=== PATIENT | female | born 1960 | race Caucasian/White ===

== ENCOUNTER 2017-06-23 18:11 | Observation (INO) | payer OTHER ==
[2017-06-23] VITALS (8 sets, daily range): BP systolic 142–195; BP diastolic 73–92; PULSE 75–86; RESP 18; TEMP 98.4; O2SAT 97–98
[~2017-06-23] VITALS: Ht 152.4 cm; Wt 89.5 kg
[2017-06-23] MEDS ORDERED: LISI20TA PO (18:24)
[2017-06-23] MEDS ORDERED: BACT400T PO (18:24)
[2017-06-23] MEDS ORDERED: SODIUM CHLORID 0.9% 500 ML INJ 500 ML IV ONE (18:45)
[2017-06-23] MEDS ORDERED: SODIUM CHLORIDE 0.9% FLUSH 10 ML FLUSH IVF PRN (18:45)
[2017-06-23] MEDS: NITROGLYCERIN 0.4 MG SL 25 TABS/BTL SL SCH ×3 (19:05→19:14)
--- NOTE | 2017-06-23 19:05 | PD ---
HPI Chief Complaint: Chest Pain Time Seen by Provider: 18:32 Travel History International Travel<30 days: No Contact w/Intl Traveler<30days: No Traveled to known affect area: No History of Present Illness HPI Patient is a 57-year-old female with history of hypertension, presents to emergency room with complaints of chest pain. Patient reports that around 5:30 PM tonight, she was standing in her kitchen and began to have chest pain. She reports that chest pain was substernal nature, reports it radiates to her back. Patient reports that pain feels like a "gripping pain" to her chest with associated shortness of breath. Patient denies any diaphoresis or nausea or vomiting with her symptoms. Patient reports that symptoms were continuous until she came to the emergency room, reports that it slightly resolved but then came back again. Patient denies history of coronary artery disease, denies history of hypertension or hyperlipidemia. Patient with no recent travels or trips. 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, denies history of ACS PFSH Past Medical History Genitourinary: Yes (UTI) Hypertension: Yes Influenza Vaccination: No ?: Not Past Surgical History Surgical History: No Previous Surgery Social History Alcohol Use: Yes (OCCAS) Tobacco Use: No Substance Use: No Allergies-Medications (Allergen,Severity, Reaction): Coded Allergies: No Known Allergies (Unverified , 06/23/17) Reported Meds & Prescriptions Reported Meds & Active Scripts Active Reported Lisinopril-Hctz 20-12.5 Mg Tab 1 Tab PO DAILY Bactrim (Sulfamethoxazole-Trimethoprim) 400-80 Mg Tab 1 Tab PO BID Review of Systems General / Constitutional: No: Fever, Chills Eyes: No: Visual changes HENT: No: Headaches Cardiovascular: Positive: Chest Pain or Discomfort, No: Palpitations, Irregular Rhythm, Tachycardia, Diaphoresis Respiratory: Positive: Shortness of Breath Gastrointestinal: No: Nausea, Vomiting, Diarrhea, Abdominal Pain Genitourinary: No: Dysuria Musculoskeletal: No: Pain Skin: No Rash Neurologic: No: Weakness Psychiatric: No: Depression Endocrine: No: Polydipsia Hematologic/Lymphatic: No: Easy Bruising Physical Exam Narrative GENERAL: mild distress SKIN: Focused skin assessment warm/dry. HEAD: Atraumatic. Normocephalic. EYES: Pupils equal and round. No scleral icterus. No injection or drainage. ENT: No nasal bleeding or discharge. Mucous membranes pink and moist. NECK: Trachea midline. No JVD. CARDIOVASCULAR: Regular rate and rhythm. No murmur appreciated. RESPIRATORY: No accessory muscle use. Clear to auscultation. Breath sounds equal bilaterally. GASTROINTESTINAL: Abdomen soft, non-tender, nondistended. Hepatic and splenic margins not palpable. MUSCULOSKELETAL: No obvious deformities. No clubbing. No cyanosis. No edema. NEUROLOGICAL: Awake and alert. No obvious cranial nerve deficits. Motor grossly within normal limits. Normal speech. PSYCHIATRIC: Appropriate mood and affect; insight and judgment normal. Data Data Last Documented VS Vital Signs Date Time Temp Pulse Resp B/P (MAP) Pulse Ox O2 Delivery O2 Flow Rate FiO2 06/23/17 22:02 75 18 150/73 (98) 98 Room Air 06/23/17 18:21 98.4 Orders Orders B-Type Natriuretic Peptide (06/23/17 18:32) Ckmb (Isoenzyme) Profile (06/23/17 18:32) Complete Blood Count With Diff (06/23/17 18:32) Comprehensive Metabolic Panel (06/23/17 18:32) D-Dimer (06/23/17 18:32) Magnesium (Mg) (06/23/17 18:32) Prothrombin Time / Inr (Pt) (06/23/17 18:32) Act Partial Throm Time (Ptt) (06/23/17 18:32) Troponin I (06/23/17 18:32) Lipase (06/23/17 18:32) Chest, Single Ap (06/23/17 18:32) Ecg Monitoring (06/23/17 18:32) Bilateral Bp Monitoring (06/23/17 18:32) Iv Access Insert/Monitor (06/23/17 18:32) Oximetry (06/23/17 18:32) Sodium Chloride 0.9% Flush (Ns Flush) (06/23/17 18:45) Sodium Chlorid 0.9% 500 Ml Inj (Ns 500 M (06/23/17 18:45) Cta Thor Abd Aorta W Iv C W3d (06/23/17 18:51) Nitroglycerin Sl (Nitrostat Sl) (06/23/17 19:00) Electrocardiogram (06/23/17 18:20) Iohexol 350 Inj (Omnipaque 350 Inj) (06/23/17 21:48) Aspirin (Aspirin) (06/23/17 22:45) Labs Laboratory Tests Test 06/23/17 18:30 06/23/17 20:05 B-Type Natriuretic Peptide 14 PG/ML White Blood Count 6.2 TH/MM3 Red Blood Count 4.41 MIL/MM3 Hemoglobin 13.6 GM/DL Hematocrit 39.7 % Mean Corpuscular Volume 90.1 FL Mean Corpuscular Hemoglobin 30.9 PG Mean Corpuscular Hemoglobin Concent 34.3 % Red Cell Distribution Width 12.7 % Platelet Count 268 TH/MM3 Mean Platelet Volume 7.2 FL Neutrophils (%) (Auto) 76.4 % Lymphocytes (%) (Auto) 18.6 % Monocytes (%) (Auto) 3.3 % Eosinophils (%) (Auto) 1.3 % Basophils (%) (Auto) 0.4 % Neutrophils # (Auto) 4.7 TH/MM3 Lymphocytes # (Auto) 1.2 TH/MM3 Monocytes # (Auto) 0.2 TH/MM3 Eosinophils # (Auto) 0.1 TH/MM3 Basophils # (Auto) 0.0 TH/MM3 CBC Comment DIFF FINAL Differential Comment Prothrombin Time 10.7 SEC Prothromb Time International Ratio 1.0 RATIO Activated Partial Thromboplast Time 28.7 SEC D-Dimer Quantitative (PE/DVT) 0.48 MG/L FEU Blood Urea Nitrogen 36 MG/DL Creatinine 0.90 MG/DL Random Glucose 94 MG/DL Total Protein 7.9 GM/DL Albumin 4.0 GM/DL Calcium Level 8.7 MG/DL Magnesium Level 2.1 MG/DL Alkaline Phosphatase 101 U/L Aspartate Amino Transf (AST/SGOT) 19 U/L Alanine Aminotransferase (ALT/SGPT) 38 U/L Total Bilirubin 0.6 MG/DL Sodium Level 133 MEQ/L Potassium Level 3.6 MEQ/L Chloride Level 99 MEQ/L Carbon Dioxide Level 23.0 MEQ/L Anion Gap 11 MEQ/L Estimat Glomerular Filtration Rate 65 ML/MIN Total Creatine Kinase 94 U/L Troponin I LESS THAN 0.02 NG/ML Lipase 92 U/L MDM Medical Decision Making Medical Screen Exam Complete: Yes Emergency Medical Condition: Yes Medical Record Reviewed: Yes Interpretation(s) EKG at 1820: Normal sinus rhythm at 78BPM, qt/qtc: 362/396 incomplete RBBB; no previous ekg to compare Vital Signs Date Time Temp Pulse Resp B/P (MAP) Pulse Ox O2 Delivery O2 Flow Rate FiO2 06/23/17 18:41 97 Room Air 06/23/17 18:35 86 97 Room Air 06/23/17 18:21 98.4 86 18 195/92 (126) 97 Differential Diagnosis Aortic dissection, ACS, arrhythmia, electrolyte abnormality, PE Narrative Course 57-year-old female with history of hypertension, presents to emergency with complaints of chest pain. During the course of the patients emergency department visit, the patients history, examination, and differential diagnosis were reviewed with the patient. The patient was placed on a surveillance monitor with oximetry and frequent blood pressure monitoring. The patient had [-] IV access obtained and blood work sent for analysis. The patient was initially provided IVF as well as SL nitro for chest pain relief. Patient received 1 dose of SL nitro - reports relief of chest pain at this time. The patients laboratory studies were reviewed and remarkable for: Laboratory Tests Test 06/23/17 18:30 06/23/17 20:05 B-Type Natriuretic Peptide 14 PG/ML (0-100) White Blood Count 6.2 TH/MM3 (4.0-11.0) Red Blood Count 4.41 MIL/MM3 (4.00-5.30) Hemoglobin 13.6 GM/DL (11.6-15.3) Hematocrit 39.7 % (35.0-46.0) Mean Corpuscular Volume 90.1 FL (80.0-100.0) Mean Corpuscular Hemoglobin 30.9 PG (27.0-34.0) Mean Corpuscular Hemoglobin Concent 34.3 % (32.0-36.0) Red Cell Distribution Width 12.7 % (11.6-17.2) Platelet Count 268 TH/MM3 (150-450) Mean Platelet Volume 7.2 FL (7.0-11.0) Neutrophils (%) (Auto) 76.4 % (16.0-70.0) Lymphocytes (%) (Auto) 18.6 % (9.0-44.0) Monocytes (%) (Auto) 3.3 % (0.0-8.0) Eosinophils (%) (Auto) 1.3 % (0.0-4.0) Basophils (%) (Auto) 0.4 % (0.0-2.0) Neutrophils # (Auto) 4.7 TH/MM3 (1.8-7.7) Lymphocytes # (Auto) 1.2 TH/MM3 (1.0-4.8) Monocytes # (Auto) 0.2 TH/MM3 (0-0.9) Eosinophils # (Auto) 0.1 TH/MM3 (0-0.4) Basophils # (Auto) 0.0 TH/MM3 (0-0.2) CBC Comment DIFF FINAL Differential Comment Prothrombin Time 10.7 SEC (9.8-11.6) Prothromb Time International Ratio 1.0 RATIO Activated Partial Thromboplast Time 28.7 SEC (24.3-30.1) D-Dimer Quantitative (PE/DVT) 0.48 MG/L FEU (0.00-0.50) Blood Urea Nitrogen 36 MG/DL (7-18) Creatinine 0.90 MG/DL (0.50-1.00) Random Glucose 94 MG/DL (74-106) Total Protein 7.9 GM/DL (6.4-8.2) Albumin 4.0 GM/DL (3.4-5.0) Calcium Level 8.7 MG/DL (8.5-10.1) Magnesium Level 2.1 MG/DL (1.5-2.5) Alkaline Phosphatase 101 U/L (45-117) Aspartate Amino Transf (AST/SGOT) 19 U/L (15-37) Alanine Aminotransferase (ALT/SGPT) 38 U/L (10-53) Total Bilirubin 0.6 MG/DL (0.2-1.0) Sodium Level 133 MEQ/L (136-145) Potassium Level 3.6 MEQ/L (3.5-5.1) Chloride Level 99 MEQ/L (98-107) Carbon Dioxide Level 23.0 MEQ/L (21.0-32.0) Anion Gap 11 MEQ/L (5-15) Estimat Glomerular Filtration Rate 65 ML/MIN (>89) Total Creatine Kinase 94 U/L (26-192) Troponin I LESS THAN 0.02 NG/ML Lipase 92 U/L (73-393) Radiology studies were reviewed and remarkable for: Last Impressions Chest X-Ray 06/23/17 [id number] Signed Impressions: Service Date/Time: Friday, June 23, 2017 19:19 - CONCLUSION: No acute disease. Buddy Godfrey MD CTA of chest: Scattered atherosclerotic calcifications throughout the arterial system including the coronary arteries. A significant stenosis or dissection of the aorta is not seen. CP free after 1 sl nitro. Diagnosis Primary Impression: Chest pain Elena Cueva DO Jun 23, 2017 19:05
[2017-06-23 19:22] LABS: BASOPHIL % 0.4 % (0.0-2.0); HEMO FLAGS DIFF FINAL
[2017-06-23 20:17] LABS: HEMATOCRIT 39.7 % (35.0-46.0); RED BLOOD COUNT 4.41 MIL/MM3 (4.00-5.30)
[2017-06-23 20:18] LABS: MEAN CELL VOLUME 90.1 FL (80.0-100.0); MEAN CORPUSCULAR HEMOGLOBIN 30.9 PG (27.0-34.0)
[2017-06-23 20:19] LABS: MEAN CORPUSCULAR HGB CONC 34.3 % (32.0-36.0); PLATELET COUNT 268 TH/MM3 (150-450); RED CELL DISTRIBUTION WIDTH 12.7 % (11.6-17.2)
[2017-06-23 20:20] LABS: LYMPH % 18.6 % (9.0-44.0); NEUT % 76.4 % (16.0-70.0)
[2017-06-23 20:21] LABS: EOSINOPHIL % 1.3 % (0.0-4.0); MONO % 3.3 % (0.0-8.0)
[2017-06-23 20:22] LABS: AUTOMATED NEUTROPHIL # 4.7 TH/MM3 (1.8-7.7); LYMPHOCYTE # 1.2 TH/MM3 (1.0-4.8)
[2017-06-23 20:23] LABS: EOSINOPHIL # 0.1 TH/MM3 (0-0.4)
[2017-06-23 20:37] LABS: APTT (PATIENT) 28.7 SEC (24.3-30.1)
[2017-06-23 20:38] LABS: PROTHROMBIN TIME - PATIENT 10.7 SEC (9.8-11.6)
--- NOTE | 2017-06-23 20:40 | RADRPT ---
EXAM DATE/TIME: 06/23/2017 19:19 [facility] COMPARISON: No previous studies available for comparison. INDICATIONS : Chest pain today. MEDICAL HISTORY : Hypertension. SURGICAL HISTORY : None. ENCOUNTER: Initial ACUITY: 1 day PAIN SCORE: 7/10 LOCATION: Bilateral chest FINDINGS: A single view of the chest demonstrates the lungs to be symmetrically aerated without evidence of mas s, infiltrate or effusion. The cardiomediastinal contours are unremarkable. Osseous structures are intact. CONCLUSION: No acute disease. Buddy Godfrey MD on June 23, 2017 at 20:38 Board Certified Radiologist. This report was verified electronically.
[2017-06-23 20:50] LABS: BLOOD UREA NITROGEN 36 MG/DL (7-18); GLOMERULAR FILTRATION RATE 65 ML/MIN (>89)
[2017-06-23 20:51] LABS: ALKALINE PHOSPHATASE 101 U/L (45-117); ALT (GPT) 38 U/L (10-53); AST (GOT) 19 U/L (15-37); MAGNESIUM 2.1 MG/DL (1.5-2.5); TOTAL BILIRUBIN ADULT 0.6 MG/DL (0.2-1.0)
[2017-06-23 20:52] LABS: CHLORIDE 99 MEQ/L (98-107); POTASSIUM 3.6 MEQ/L (3.5-5.1); SODIUM (NA) 133 MEQ/L (136-145)
[2017-06-23 20:53] LABS: ANION GAP 11 MEQ/L (5-15); CREATINE KINASE 94 U/L (26-192)
[2017-06-23] MEDS ORDERED: IOHEXOL 350 MG/ML 10 ML VIAL (for RAD DIAG) IVCONTRAST ONE (21:48)
--- NOTE | 2017-06-23 22:36 | RADRPT ---
EXAM DATE/TIME: 06/23/2017 21:18 [facility] COMPARISON: No previous studies available for comparison. INDICATIONS : Chest pain. Evaluate for aortic dissection. IV CONTRAST: 100 cc Omnipaque 350 (iohexol) IV RADIATION DOSE: 20.84 CTDIvol (mGy) MEDICAL HISTORY : Hypertension. SURGICAL HISTORY : None. ENCOUNTER: Initial ACUITY: 1 day PAIN SCALE: 7/10 LOCATION: chest TECHNIQUE: Volumetric scanning was performed using a multi-row detector CT scanner. The data was post processed with a variety of visualization algorithms including full volume maximum intensity projection, multi -planar sliding thin slab reformation, curved planar reformation, and surface rendering techniques. Using automated exposure control and adjustment of the mA and/or kV according to patient size, radiat ion dose was kept as low as reasonably achievable to obtain optimal diagnostic quality images. DICOM format image data is available electronically for review and comparison. FINDINGS: LUNGS: There is no consolidation or pneumothorax. No concerning pulmonary nodule is visualized. No pleural fluid is present. MEDIASTINUM: No abnormally enlarged lymph nodes by CT criteria. No axillary or hilar abnormalities are identified. ABDOMEN: The liver and spleen are free of focal defects. The patient is status post cholecystectomy. The pancr eas demonstrate no abnormality. The adrenal glands are normal. The kidneys demonstrate no evidence of solid renal mass or hydronephrosis. There is a 2.2 cm cyst the right kidney. No free fluid or abdomi nal masses are identified. No para-aortic adenopathy is seen. There are scattered colonic diverticula . PELVIS: No evidence of free fluid or pelvic mass. No abnormally enlarged inguinal or retroperitoneal lymph no nnamdi are present. The bladder is unremarkable. THORACIC AORTA: There is atherosclerotic calcification seen throughout the arterial system. The thoracic aortic root is normal with normal branching of the great vessels. There is no evidence of aneurysm or dissection . Coronary artery calcifications are present. ABDOMINAL AORTA: The aorta is normal in caliber without aneurysm or dissection. The renal arteries are patent bilater ally. The proximal celiac and superior mesenteric arteries are patent and normal in diameter. PELVIC VESSELS: The internal iliac and external iliac vessels are patent without aneurysm or stenosis. CONCLUSION: Scattered atherosclerotic calcifications throughout the arterial system including the coronary arteri es. A significant stenosis or dissection of the aorta is not seen. Buddy Godfrey MD on June 23, 2017 at 22:31 Board Certified Radiologist. This report was verified electronically.
[2017-06-23] MEDS ORDERED: ASPIRIN 325 MG TAB PO ONE (22:45)
[2017-06-23] MEDS ORDERED: MORPHINE SULFATE 4 MG/ML INJ IV PUSH PRN (23:00)
[2017-06-23] MEDS ORDERED: ACETAMINOPHEN 500 MG CPLT PO PRN (23:00)
[2017-06-23] MEDS ORDERED: ONDANSETRON HCL 4 MG/2 ML VIAL IV PUSH PRN (23:00)
[2017-06-23] MEDS ORDERED: SODIUM CHLORIDE 0.9% FLUSH 10 ML FLUSH IV FLUSH PRN (23:00)
[2017-06-23] MEDS: NITROGLYCERIN 2% OINT 1 GM PACKET TOP SCH (23:21)
[2017-06-23] MEDS: HEPARIN SODIUM - SQ 10,000 UNITS/ML VIAL SQ SCH (23:21)
[2017-06-24] VITALS (8 sets, daily range): BP systolic 124–162; BP diastolic 66–103; PULSE 65–77; RESP 16–20; TEMP 96.7–98.1; O2SAT 98
[2017-06-24] MEDS: NITROGLYCERIN 2% OINT 1 GM PACKET TOP SCH (00:42)
[2017-06-24 00:46] LABS: CREATINE KINASE 90 U/L (26-192)
[2017-06-24 03:36] LABS: CREATINE KINASE 90 U/L (26-192)
[2017-06-24] MEDS: HEPARIN SODIUM - SQ 10,000 UNITS/ML VIAL SQ SCH (06:07)
[2017-06-24] MEDS ORDERED: ENALAPRILAT 1.25 MG/ML VIAL IV PUSH PRN (08:45)
--- NOTE | 2017-06-24 08:45 | HHI.HP ---
HPI Service [facility] Primary Care Physician Non-Staff Admission Diagnosis Chest pain Diagnoses: Travel History International Travel<30 Days: No Contact w/Intl Traveler <30 Da: No Traveled to Known Affected Are: No History of Present Illness Patient is a 57-year-old female with past medical history of hypertension, hemangioma, IBS, presented to the ED with complaints of chest pain. She states this started around 5 PM yesterday with radiation to the back. Rated a 10 out of 10 and stated was more of a squeezing pain. Per patient it lasted more than an hour. Her blood pressure which was checked by her neighbor was 190/120 at the time. She does have a history of high blood pressure for which she takes the lisinopril/HCTZ 20/25 daily. She did take her medicines yesterday. She states she is taking Bactrim for a urinary tract infection, she is on her third day. She denied any nausea or vomiting, lightheadedness or dizziness, diaphoresis associated with her chest pain. Currently her pain has resolved. She still has a 2 out of 10 pain in her upper back otherwise she has no other complaints. Denies any runny nose, cough, abdominal pain or shortness of breath. Review of Systems Except as stated in HPI: all other systems reviewed are Neg Past Family Social History Past Medical History Hypertension, hemangioma, IBS, ankle fracture Past Surgical History Cholecystectomy Reported Medications Reported Meds & Active Scripts Active Reported Lisinopril-Hctz 20-12.5 Mg Tab 1 Tab PO DAILY Bactrim (Sulfamethoxazole-Trimethoprim) 400-80 Mg Tab 1 Tab PO BID Allergies: Coded Allergies: No Known Allergies (Unverified , 06/23/17) Family History Her mother is still living and has lung cancer; father at age of 34 from endocarditis Social History Quit smoking 7 years ago. Smoked less than a pack a day for years on and off. Drinks a couple of glasses of wine here and there Denies illegal drug use Physical Exam Vital Signs Vital Signs Date Time Temp Pulse Resp B/P (MAP) Pulse Ox O2 Delivery O2 Flow Rate FiO2 06/24/17 04:00 68 124/66 (85) 06/24/17 02:30 96.7 74 20 162/103 (122) 98 06/24/17 01:45 98 21 06/24/17 01:19 65 06/24/17 00:55 06/24/17 00:40 77 18 149/72 (97) 06/23/17 23:01 75 18 144/76 (98) 98 Room Air 06/23/17 22:02 75 18 150/73 (98) 98 Room Air 06/23/17 20:30 80 18 142/76 (98) 97 Room Air 06/23/17 19:19 146/76 (99) 06/23/17 19:14 180/87 (118) 06/23/17 19:09 180/87 (118) 163/88 (113) 06/23/17 18:41 97 Room Air 06/23/17 18:35 86 97 Room Air 06/23/17 18:21 98.4 86 18 195/92 (126) 97 Physical Exam GENERAL: This is a well-nourished, well-developed patient, sitting up in bed, appears somewhat anxious SKIN: Well-healed scar around the right eye HEAD: Atraumatic. Normocephalic. No temporal or scalp tenderness. EYES: Extraocular motions intact. mild injection around the right eye which is chronic per patient ENT: Nose without drainage. Throat without erythema, tonsillar hypertrophy or exudate. Uvula midline. Airway patent. NECK: Trachea midline. CARDIOVASCULAR: Regular rate and rhythm without murmurs RESPIRATORY: Clear to auscultation. Breath sounds equal bilaterally. No wheezes GASTROINTESTINAL: Abdomen soft, non-tender, nondistended. No palpable masses. No guarding. MUSCULOSKELETAL: Extremities without edema. No calf tenderness. Negative Homans sign bilaterally. NEUROLOGICAL: Awake and alert. Cranial nerves II through XII intact. Motor and sensory grossly within normal limits. Five out of 5 muscle strength in all muscle groups. Normal speech. Laboratory Laboratory Tests Test 06/23/17 18:30 06/23/17 20:05 06/24/17 00:06 06/24/17 02:50 B-Type Natriuretic Peptide 14 White Blood Count 6.2 Red Blood Count 4.41 Hemoglobin 13.6 Hematocrit 39.7 Mean Corpuscular Volume 90.1 Mean Corpuscular Hemoglobin 30.9 Mean Corpuscular Hemoglobin Concent 34.3 Red Cell Distribution Width 12.7 Platelet Count 268 Mean Platelet Volume 7.2 Neutrophils (%) (Auto) 76.4 Lymphocytes (%) (Auto) 18.6 Monocytes (%) (Auto) 3.3 Eosinophils (%) (Auto) 1.3 Basophils (%) (Auto) 0.4 Neutrophils # (Auto) 4.7 Lymphocytes # (Auto) 1.2 Monocytes # (Auto) 0.2 Eosinophils # (Auto) 0.1 Basophils # (Auto) 0.0 CBC Comment DIFF FINAL Differential Comment Prothrombin Time 10.7 Prothromb Time International Ratio 1.0 Activated Partial Thromboplast Time 28.7 D-Dimer Quantitative (PE/DVT) 0.48 Blood Urea Nitrogen 36 Creatinine 0.90 Random Glucose 94 Total Protein 7.9 Albumin 4.0 Calcium Level 8.7 Magnesium Level 2.1 Alkaline Phosphatase 101 Aspartate Amino Transf (AST/SGOT) 19 Alanine Aminotransferase (ALT/SGPT) 38 Total Bilirubin 0.6 Sodium Level 133 Potassium Level 3.6 Chloride Level 99 Carbon Dioxide Level 23.0 Anion Gap 11 Estimat Glomerular Filtration Rate 65 Total Creatine Kinase 94 90 90 Troponin I LESS THAN 0.02 LESS THAN 0.02 LESS THAN 0.02 Lipase 92 Result Diagram: 06/23/17200406/23/172004 Imaging Last Impressions Aorta CTA 06/23/17 1851 Signed Impressions: Service Date/Time: Friday, June 23, 2017 21:18 - CONCLUSION: Scattered atherosclerotic calcifications throughout the arterial system including the coronary arteries. A significant stenosis or dissection of the aorta is not seen. Buddy Godfrey MD Chest X-Ray 06/23/17 1832 Signed Impressions: Service Date/Time: Friday, June 23, 2017 19:19 - CONCLUSION: No acute disease. Buddy Godfrey MD Caprini VTE Risk Assessment Caprini VTE Risk Assessment: No/Low Risk (score <= 1) Caprini Risk Assessment Model Point Value = 1 Point Value = 2 Point Value = 3 Point Value = 5 Age 41-60 Minor surgery BMI > 25 kg/m2 Swollen legs Varicose veins or History of unexplained or recurrent spontaneous Oral contraceptives or hormone replacement Sepsis (< 1 month) Serious lung disease, including pneumonia (< 1 month) Abnormal pulmonary function Acute myocardial infarction Congestive heart failure (< 1 month) History of inflammatory bowel disease Medical patient at bed rest Age 61-74 Arthroscopic surgery Major open surgery (> 45 min) Laparoscopic surgery (> 45 min) Malignancy Confined to bed (> 72 hours) Immobilizing plaster cast Central venous access Age >= 75 History of VTE Family history of VTE Factor V Leiden Prothrombin [id number] Lupus anticoagulant Anticardiolipin antibodies Elevated serum homocysteine Heparin-induced thrombocytopenia Other congenital or acquired thrombophilia Stroke (< 1 month) Elective arthroplasty Hip, pelvis, or leg fracture Acute spinal cord injury (< 1 month) Prophylaxis Regimen Total Risk Factor Score Risk Level Prophylaxis Regimen 0-1 Low Early ambulation 2 Moderate Order ONE of the following: *Sequential Compression Device (SCD) *Heparin 5000 units SQ BID 3-4 Higher Order ONE of the following medications: *Heparin 5000 units SQ TID *Enoxaparin/Lovenox 40 mg SQ daily (WT < 150 kg, CrCl > 30 mL/min) *Enoxaparin/Lovenox 30 mg SQ daily (WT < 150 kg, CrCl > 10-29 mL/min) *Enoxaparin/Lovenox 30 mg SQ BID (WT < 150 kg, CrCl > 30 mL/min) AND/OR *Sequential Compression Device (SCD) 5 or more Highest Order ONE of the following medications: *Heparin 5000 units SQ TID (Preferred with Epidurals) *Enoxaparin/Lovenox 40 mg SQ daily (WT < 150 kg, CrCl > 30 mL/min) *Enoxaparin/Lovenox 30 mg SQ daily (WT < 150 kg, CrCl > 10-29 mL/min) *Enoxaparin/Lovenox 30 mg SQ BID (WT < 150 kg, CrCl > 30 mL/min) AND *Sequential Compression Device (SCD) Assessment and Plan Assessment and Plan Chest pain: Troponin negative 3. Patient is currently chest pain-free. CTA reviewed and shows not dissecting aorta. EKG reviewed and didn't show any ST depressions or elevations. Pt doesn't think she can run due to her prior hx of ankle fx. Will perform a myocardial perfusion scan. Hypertension: Patient did present with elevated blood pressure 195/92 which later trended in the 140s. Last blood pressure was on the 120s. We'll monitor closely. Patient may need adjustment of her blood pressure medications for now will continue the lisinopril/HCTZ at current dosing. I added Vasotec as needed UTI: resume bactrim Hemangioma: Stable Code Status full Discussed Condition With patient and Juany Vieira MD Jun 24, 2017 08:45
[2017-06-24] MEDS ORDERED: LISI20TA3 PO (08:55)
[2017-06-24] MEDS ORDERED: NON-FORMULARY DRUG (Lisinopril-Hctz 1 TAB) PO SCH (09:00)
[2017-06-24] MEDS ORDERED: HYDROCHLOROTHIAZIDE 25 MG TAB PO SCH ×2 (09:00)
[2017-06-24] MEDS ORDERED: SODIUM CHLORIDE 0.9% FLUSH 10 ML FLUSH IV FLUSH SCH (09:00)
[2017-06-24] MEDS ORDERED: ASPIRIN EC 81 MG TABEC PO SCH (09:00)
[2017-06-24] MEDS ORDERED: LISINOPRIL 20 MG TAB PO SCH (09:00)
[2017-06-24] MEDS ORDERED: SULFAMETHOXAZOLE-TRIMETHOPRIM 400-80 MG TAB PO SCH (09:00)
[2017-06-24 11:58] LABS: WHITE BLOOD COUNT 6.2 TH/MM3 (4.0-11.0)
--- NOTE | 2017-06-24 12:37 | RADRPT ---
EXAM DATE/TIME: 06/24/2017 10:26 [facility] COMPARISON: No previous studies available for comparison. INDICATIONS : Substernal chest pain radiating to the back. Angina. DOSE: 27.3 mCi Tc99m Myoview at stress. 8.6 mCi Tc99m Myoview at rest. 0.4 mg Lexiscan STRESS SYMPTOMS: Dyspnea and tingling. EJECTION FRACTION: > 70% MEDICAL HISTORY : Hypercholesterolemia. Hypertension. Inflammatory bowel disease. SURGICAL HISTORY : Cholecystectomy. ENCOUNTER: Initial ACUITY: 1 day PAIN SCALE: 10/10 LOCATION: Substernal chest TECHNIQUE: The patient underwent pharmacologic stress with infusion of prescribed dose. Continuous ECG tracing was monitored during stress. Gated SPECT imaging was performed after stress and conventional SPECT i maging was performed at rest. The examination was performed on a SPECT/CT scanner, both attenuation and non-corrected datasets were reviewed. FINDINGS: DISTRIBUTION: The maximum perfused segment at stress is in the anterolateral wall. PERFUSION STUDY: The pattern of perfusion at stress is within normal limits. GATED STUDY: There is intact wall motion and thickening without hypokinetic or dyskinetic segments. CONCLUSION: 1. No reversible perfusion defect to indicate stress-induced myocardial ischemia is identified. RISK CATEGORY: Low (<1% Annual Mortality Rate) Suresh So MD on June 24, 2017 at 12:35 Board Certified Radiologist. This report was verified electronically.
[2017-06-24 12:44] LABS: HDL CHOLESTEROL 75.5 MG/DL (40.0-60.0)
--- NOTE | 2017-06-24 13:10 | HHI.DCPOC ---
Discharge Care Plan Diagnosis: (1) Chest pain Your Health Problems Are: Chest Pain Goals to Promote Your Health * To prevent worsening of your condition and complications * To maintain your health at the optimal level Directions to Meet Your Goals Take your medications as prescribed Follow your dietary instruction Follow activity as directed Keep your appointments as scheduled Take your immunizations and boosters as scheduled If your symptoms worsen call your PCP, if no PCP go to Urgent Care Center or Emergency Room Smoking is Dangerous to Your Health. Avoid second hand smoke Call the 24-hour hour crisis hotline for domestic abuse at Mallorie Florez Jun 24, 2017 13:10
[2017-06-24] MEDS ORDERED: AMLO5TAB2 PO (13:20)
[2017-06-24] MEDS ORDERED: ATOR20TA15 PO (13:20)
[2017-06-24] MEDS ORDERED: ECASA81 PO (13:20)
--- NOTE | 2017-06-24 16:22 | EKG ---
Date Performed: 06/24/2017 Time Performed: 01:44:44 PTAGE: 57 years EKG: Sinus rhythm INCOMPLETE RIGHT BUNDLE BRANCH BLOCK BORDERLINE ECG Since PREVIOUS TRACING , no significant change noted PREVIOUS TRACIN06/23/2017 23.08 DOCTOR: Neeta Escoto Interpretating Date/Time 06/24/2017 16:22:02
--- NOTE | 2017-06-24 16:31 | TR ---
Date Performed: 06/24/2017 Time Performed: 10:54:43 DOCTOR: Neeta Escoto DRUG LIST: CLINICAL HISTORY: REASON FOR TEST: Chest pain REASON FOR ENDING: OBSERVATION: CONCLUSION: Lexiscan stress test was performed under standard four minute protocol. Radionuclid e was injected one minute prior to ending the test. No electrocardiographic abormalities were present to suggest ischemia. Nuclear imaging and interpretation are pending. COMMENTS:
--- NOTE | 2017-06-24 16:35 | EKG ---
Date Performed: 06/23/2017 Time Performed: 18:20:56 PTAGE: 57 years EKG: Sinus rhythm INCOMPLETE RIGHT BUNDLE BRANCH BLOCK Nonspecific ST changes BORDERLINE ECG NO PREVIOUS TRACING DOCTOR: Neeta Escoto Interpretating Date/Time 06/24/2017 16:34:04
--- NOTE | 2017-06-24 16:38 | EKG ---
Date Performed: 06/23/2017 Time Performed: 23:08:46 PTAGE: 57 years EKG: Sinus rhythm INCOMPLETE RIGHT BUNDLE BRANCH BLOCK BORDERLINE ECG Since PREVIOUS TRACING , no significant change noted PREVIOUS TRACIN06/23/2017 18.20 DOCTOR: Neeta Escoto Interpretating Date/Time 06/24/2017 16:36:33
[2017-06-24] MEDS ORDERED: REGADENOSON INJ 0.4 MG/5 ML SYR IV ONE (22:49)
== END 2017-06-24 14:27 | disposition home or self-care (01) ==
LOC: PHEFT 18:11 → PHEDA 22:48 → PH3A 06-24 01:10
PROVIDERS: ADMIT Hospitalist; ATTEND Hospitalist
DX: R07.89 Other chest pain (principal); R06.02 Shortness of breath; I10 Essential (primary) hypertension; N39.0 Urinary tract infection, site not specified; D18.00 Hemangioma unspecified site; I20.9 Angina pectoris, unspecified; K58.9 Irritable bowel syndrome, unspecified; I45.10 Unspecified right bundle-branch block; I70.90 Unspecified atherosclerosis; E78.00 Pure hypercholesterolemia, unspecified; Z87.891 Personal history of nicotine dependence; Z79.899 Other long term (current) drug therapy
CPT/HCPCS: 71010; 71275; 74174; 78452; 80053; 80061; 82550; 83690; 83735; 83880; 84484; 85025; 85379; 85610; 85730; 93005; 93017; 96360; 96372; 99285; A9502; G0378; J1644; J2785; J7040; Q9967